=== PATIENT | female | born 1940 | race Caucasian/White ===

== ENCOUNTER 2017-01-29 11:55 | Outpatient (CLI) | payer OTHER ==
--- NOTE | 2017-01-29 13:08 | DIAGNOSTIC IMAGING REPORT ---
PROCEDURE: XR CERVICAL SPINE 4 OR 5 VIEW INDICATION: NECK PAIN CERVICALGIA TECHNIQUE: Five views. COMPARISON: None. FINDINGS: There is mild spondylosis C5-6 and C6-7. There is a small posterior osteophytic ridge at C5-6. There is no neural foraminal impingement. IMPRESSION: 1. Mild spondylosis C5-6 C6-7.
== END 2017-01-29 23:00 ==
LOC: XR SRH 11:55
DX: M47.812 Spondylosis without myelopathy or radiculopathy, cervical region (principal)

== ENCOUNTER 2017-02-05 15:05 | Outpatient (CLI) | payer OTHER ==
--- NOTE | 2017-02-05 17:38 | DIAGNOSTIC IMAGING REPORT ---
PROCEDURE: MG BILATERAL SCREENING W/CAD INDICATION: SCREENING TECHNIQUE: Standard CC and MLO views bilaterally. Computer aided detection was used. COMPARISON: 11/16/2014, 04/22/2007 FINDINGS: Minimally dense fibrofatty tissue is present bilaterally. No developing densities, areas of architectural distortion, or suspicious microcalcifications. IMPRESSION: 1. Stable mammograms without radiographic evidence of malignancy. RESULT CODE: 1- Negative. A. A negative report should not delay biopsy if a dominant or clinically suspicious mass is present. 10-15% of cancers are not identified by x-ray. B. A negative report may reinforce clinical impression. C. Adenosis and dense breasts may obscure an underlying neoplasm. D. False positive reports average 6-10%. E.. A yearly screening mammogram is recommended. A reminder letter will be scheduled.
== END 2017-02-05 23:00 ==
LOC: MAM SRH 15:05
DX: Z12.31 Encounter for screening mammogram for malignant neoplasm of breast (principal)